=== PATIENT | female | born 1975 | race American Indian/Alaskan Native ===

== ENCOUNTER 2018-09-29 12:03 | Emergency (ER) | payer SELFPAY ==
[~2018-09-29] VITALS: Ht 165.1 cm; Wt 112.0 kg
[2018-09-29 12:13] VITALS: BP 160/98
== END 2018-09-29 14:01 | disposition home or self-care (01) ==
LOC: ER 12:03
DX: L73.8 Other specified follicular disorders (principal); I10 Essential (primary) hypertension; Z88.2 Allergy status to sulfonamides

== ENCOUNTER 2023-03-31 10:25 | Emergency (ER) | payer SELFPAY ==
[~2023-03-31] VITALS: Ht 165.1 cm; Wt 110.6 kg
[2023-03-31 11:38] VITALS: BP 152/94; PULSE 103; RESP 18; TEMP 98.1; O2SAT 98
[2023-03-31] MEDS ORDERED: PROM1SOL4 PO (11:59)
[2023-03-31] MEDS ORDERED: PRED15SO33 PO (11:59)
[2023-03-31] MEDS ORDERED: AMOXSUS6 PO (11:59)
== END 2023-03-31 12:14 | disposition home or self-care (01) ==
LOC: ER 10:25
DX: J01.90 Acute sinusitis, unspecified (principal); I10 Essential (primary) hypertension; Z88.2 Allergy status to sulfonamides